=== PATIENT | female | born 1955 | race Caucasian/White ===

== ENCOUNTER 2021-06-01 09:59 | Emergency (ER) | payer SELFPAY ==
[~2021-06-01] VITALS: Ht 167.6 cm; Wt 63.5 kg
== END 2021-06-01 10:41 | disposition home or self-care (01) ==
LOC: ER 10:07
DX: M54.32 Sciatica, left side (principal); I10 Essential (primary) hypertension; E11.9 Type 2 diabetes mellitus without complications; Z85.038 Personal history of other malignant neoplasm of large intestine
CPT/HCPCS: 99283